=== PATIENT | female | born 1990 | race African-American/Black ===

== ENCOUNTER 2019-01-23 16:53 | Emergency (ER) | payer SELFPAY ==
--- NOTE | 2019-01-23 17:26 | ER ---
Nurse's Notes [facility] Name: Demar Ochoa Age: 28 yrs Sex: Female : 1990 Arrival Date: 01/23/2019 Time: 16:53 Bed 12 Private MD: Diagnosis: Conjunctivitis Presentation: 01/23 17:06 Presenting complaint: Patient states: "I got pink eye from my son." Started Wednesday to sv the left eye. Transition of care: patient was not received from another setting of care. Onset of symptoms was January 20, 2019. Risk Assessment: Do you want to hurt yourself or someone else? Patient reports no desire to harm self or others. Initial Sepsis Screen: Does the patient meet any 2 criteria? No. Patient's initial sepsis screen is negative. Does the patient have a suspected source of infection? No. Patient's initial sepsis screen is negative. Care prior to arrival: None. 17:06 Method Of Arrival: Ambulatory sv 17:06 Acuity: TRANG 5 sv Triage Assessment: 17:06 General: Appears in no apparent distress. comfortable, well developed, Behavior is sv calm, cooperative, appropriate for age. Pain: Denies pain. EENT: Eyes are tearing on left eye Sclera/Cornea are reddened in left eye. Neuro: Level of Consciousness is awake, alert, obeys commands, Oriented to person, place, time, situation. Respiratory: Respiratory effort is even, unlabored, Respiratory pattern is regular, symmetrical. Derm: Skin is pink, warm \\T\\ dry. Historical: - Allergies: 17:07 No Known Allergies; sv - PMHx: 17:07 None; sv - PSHx: 17:07 None; sv - Immunization history:: Adult Immunizations up to date. - Social history:: Smoking status: Patient/guardian denies using tobacco. - Ebola Screening: : No symptoms or risks identified at this time. Screenin:06 Abuse screen: Denies threats or abuse. Denies injuries from another. Nutritional sv screening: No deficits noted. Tuberculosis screening: No symptoms or risk factors identified. Fall Risk None identified. Assessment: 17:18 Reassessment: Patient appears in no apparent distress at this time. No changes from sv previously documented assessment. See triage assessment. Vital Signs: 17:07 BP 121 / 83; Pulse 79; Resp 16; Temp 98.7(O); Pulse Ox 97% ; Weight 58.97 kg; Height 5 sv ft. 4 in. (162.56 cm); 17:07 Body Mass Index 22.31 (58.97 kg, 162.56 cm) sv ED Course: 16:53 Patient arrived in ED. as 17:06 Patient has correct armband on for positive identification. Call light in reach. Door sv closed. 17:07 Triage completed. sv 17:08 Cesar Benavides PA is PHCP. jr8 17:08 Branden Ambrocio MD is Attending Physician. jr8 17:08 Arm band placed on. sv 17:35 Jerrell Lord, TONIO is Primary Nurse. rv 17:35 No provider procedures requiring assistance completed. Patient did not have IV access rv during this emergency room visit. Administered Medications: No medications were administered Outcome: 17:25 Discharge ordered by . jr8 17:35 Discharged to home ambulatory. rv 17:35 Condition: good 17:35 Discharge instructions given to patient, Instructed on discharge instructions, follow up and referral plans. medication usage, Demonstrated understanding of instructions, follow-up care, medications, Prescriptions given X 1. 17:36 Patient left the ED. rv Signatures: Roberta Linares, RN RN Cece Elizabeth as Cesar Benavides PA PA rust Jerrell Lord, TONIO RN rv
--- NOTE | 2019-01-23 17:27 | EDPHYS ---
Physician Documentation [facility] Name: Demar Ochoa Age: 28 yrs Sex: Female : 1990 Arrival Date: 01/23/2019 Time: 16:53 Bed 12 Private MD: ED Physician Branden Ambrocio HPI: 01/23 17:21 This 28 yrs old Black Female presents to ER via Ambulatory with complaints of Eye jr8 Problem. 17:21 The patient is experiencing matting or discharge, pain, redness, tearing. Onset: The jr8 symptoms/episode began/occurred acutely, 1 day(s) ago. Duration: the symptoms are continuous. Aggravated by light, rubbing, Alleviated by nothing. Associated signs and symptoms: Pertinent positives: None. Patient does not utilize any form of vision correction. Severity of symptoms: At their worst the symptoms were mild in the emergency department the symptoms are unchanged. The patient has not experienced similar symptoms in the past. The patient has not recently seen a physician. Patient stated that her two children were just treated for conjunctivitis. Started to have symptoms yesterday. Worse today . Historical: - Allergies: 17:07 No Known Allergies; sv - PMHx: 17:07 None; sv - PSHx: 17:07 None; sv - Immunization history:: Adult Immunizations up to date. - Social history:: Smoking status: Patient/guardian denies using tobacco. - Ebola Screening: : No symptoms or risks identified at this time. ROS: 17:21 ENT: Negative for injury, pain, and discharge, Neck: Negative for injury, pain, and jr8 swelling, Cardiovascular: Negative for chest pain, palpitations, and edema, Respiratory: Negative for shortness of breath, cough, wheezing, and pleuritic chest pain, Abdomen/GI: Negative for abdominal pain, nausea, vomiting, diarrhea, and constipation, Back: Negative for injury and pain, MS/Extremity: Negative for injury and deformity, Skin: Negative for injury, rash, and discoloration, Neuro: Negative for headache, weakness, numbness, tingling, and seizure. 17:21 Eyes: Positive for itching, matting, pain, redness, tearing, of the left eye. Exam: 17:21 ENT: Nares patent. No nasal discharge, no septal abnormalities noted. Tympanic jr8 membranes are normal and external auditory canals are clear. Oropharynx with no redness, swelling, or masses, exudates, or evidence of obstruction, uvula midline. Mucous membranes moist. Neck: Trachea midline, no thyromegaly or masses palpated, and no cervical lymphadenopathy. Supple, full range of motion without nuchal rigidity, or vertebral point tenderness. No Meningismus. Respiratory: Lungs have equal breath sounds bilaterally, clear to auscultation and percussion. No rales, rhonchi or wheezes noted. No increased work of breathing, no retractions or nasal flaring. Abdomen/GI: Soft, non-tender, with normal bowel sounds. No distension or tympany. No guarding or rebound. No evidence of tenderness throughout. Skin: Warm, dry with normal turgor. Normal color with no rashes, no lesions, and no evidence of cellulitis. MS/ Extremity: Pulses equal, no cyanosis. Neurovascular intact. Full, normal range of motion. Neuro: Awake and alert, GCS 15, oriented to person, place, time, and situation. Cranial nerves II-XII grossly intact. Motor strength 5/5 in all extremities. Sensory grossly intact. Cerebellar exam normal. Normal gait. 17:21 Eyes: Periorbital structures: appear normal, Pupils: equal, round, and reactive to light and accomodation, Extraocular movements: intact throughout, Conjunctiva: injected, in the left eye, tearing noted, in left eye, Corneas: are normal, Sclera: no appreciated abnormality, Anterior chamber: normal, Lids and lashes: appear normal, bilaterally. Vital Signs: 17:07 BP 121 / 83; Pulse 79; Resp 16; Temp 98.7(O); Pulse Ox 97% ; Weight 58.97 kg; Height 5 sv ft. 4 in. (162.56 cm); 17:07 Body Mass Index 22.31 (58.97 kg, 162.56 cm) sv MDM: 17:18 Patient medically screened. [facility] 17:21 Data reviewed: vital signs, nurses notes, and as a result, I will discharge patient. jr8 Data interpreted: Pulse oximetry: on room air is 97 %. Interpretation: normal. Counseling: I had a detailed discussion with the patient and/or guardian regarding: the historical points, exam findings, and any diagnostic results supporting the discharge/admit diagnosis, the need for outpatient follow up, an opthalmologist, to return to the emergency department if symptoms worsen or persist or if there are any questions or concerns that arise at home. Administered Medications: No medications were administered Disposition: 01/24 07:30 Co-signature as Attending Physician, Branden Ambrocio MD I agree with the assessment and [facility] plan of care. Disposition: 01/23/19 17:25 Discharged to Home. Impression: Conjunctivitis. - Condition is Stable. - Discharge Instructions: Bacterial Conjunctivitis, Viral Conjunctivitis. - Prescriptions for Gentamicin 0.3 % Ophthalmic Drops - instill 2 drops by OPHTHALMIC route every 4 hours for 7 days; 1 bottle. - Medication Reconciliation Form, Thank You Letter, Antibiotic Education, Prescription Opioid Use, Work release form form. - Follow up: Private Physician; When: 5 - 6 days; Reason: Recheck today's complaints, Continuance of care, Re-evaluation by your physician. - Problem is new. - Symptoms have improved. Signatures: Roberta Linares RN RN sv Anderson, Corey, MD MD cha Roszak, Josh, PA PA jr8 Jerrell Lord, RN RN rv Corrections: (The following items were deleted from the chart) 01/23 17:36 17:25 01/23/2019 17:25 Discharged to Home. Impression: Conjunctivitis. Condition is rv Stable. Forms are Medication Reconciliation Form, Thank You Letter, Antibiotic Education, Prescription Opioid Use. Follow up: Private Physician; When: 5 - 6 days; Reason: Recheck today's complaints, Continuance of care, Re-evaluation by your physician. Problem is new. Symptoms have improved. jr8
== END 2019-01-23 17:36 | disposition home or self-care (01) ==
LOC: ER 16:53
DX: H10.9 Unspecified conjunctivitis (principal)
CPT/HCPCS: 99282

== ENCOUNTER 2022-01-04 01:14 | Inpatient (IN) | payer OTHER ==
[~2022-01-04 01:14] MED LIST: BUTORPHANOL 1 MG/ML INJ IV PRN; METHYLERGONOVINE 0.2MG/ML AMP IM PRN; PROMETHAZINE INJ 25 MG/ML AMP IM PRN; Ringers Lactate 1,000 ML IV PRN
--- OUTSIDE RECORDS SUMMARY | 2022-01-04 01:28 | XMS REPORT | Continuity of Care Document ---
:1990 Author Organization [facility] t Address [address] [place] [address] [address] [place] [address] Care Team Providers Name Role Phone ANAND DYKESOLGA Lora Primary Care Physician Unavailable NOA CRAWFORD Attending Clinician Unavailable NOA CRAWFORD Attending Clinician Unavailable Al Freitas NP Attending Clinician ANNE MARIE ALMANZA Attending Clinician Unavailable AL FREITAS Attending Clinician Unavailable G_Pappas Attending Clinician Unavailable G_Pappas Admitting Clinician Unavailable Payers Payer Name Policy Type Policy Number Effective Date Expiration Date S bobby [place] [employer] [id number] 2016 HEALTH 00:00:00 [place] [id number] [place]MEDICAID[place] Problems Condition Condition Condition Status Onset Resolution Last Treating Co mments Source Name Details Category Date Date Treatment Clinician Date Nausea and Nausea and Disease Active U nivers vomiting vomiting 3-04 ity of during during 00:00: [place] 00 Medi [facility] prior to prior to Branch 22 weeks 22 weeks gestation gestation Screening Screening Disease Active Uni vers examinatio examinatio 8-12 it y of n for STD n for STD 00:00: [place] (sexually (sexually 00 Medi abril transmitte transmitte Br anch d disease) d disease) Vaginal Vaginal Disease Active Univers discharge discharge 8-12 ity of 00:00: [place] 00 Medical Branch BMI BMI Disease Active Univers 25.0-25.9, 25.0-25.9, 8-12 it y of adult adult 00:00: [place] 00 Medical Branch Suprvsn of Suprvsn of Disease Active U nivers high risk high risk 8-12 ity of preg due preg due 00:00: [place] to social to social 00 Medi abril problems, problems, Bran ch second tri second tri Multiparit Multiparit Disease Active U nivers y y 8-12 ity of 00:00: [place] 00 Medical Branch Allergies, Adverse Reactions, Alerts Allergy Allergy Status Severity Reaction(s) Onset Inactive Treating Comm ents Source Name Type Date Date Clinician NO KNOWN Drug Active Univers ALLERGIE Class ity of [facility] Social History Social Habit Start Date Stop Date Quantity Comments Source ASSERTION 2021-04-18 [facility] 00:00:00 [facility] Alcohol intake 2021-07-25 2021-07-25 0 /d [facility] 00:00:00 00:00:00 [facility] Branch Sex Ass[birth year] At [birth year] [facility] 00:00:00 00:00:00 [facility] Branch Smoking Status Start Date Stop Date Source Never smoker [facility] Medications Ordered Filled Start Stop Current Ordering Indication Dosage Frequency Signature Comments Components Source Medication Medication Date Date Medication? Clinician (SIG) Name Name pyridoxine, Yes [id number] 25mg Take 1 Univers VITAMIN 3-16 tablet by ity of B-6, 25 mg 00:00: [place] tablet 00 (three) Medical times Branch daily. doxylamine Yes [id number] 25mg Take 1 U nivers 25 mg 3-16 tablet by ity of tablet 00:00: mouth at [place] 00 bedtime. Medical Branch metoclopram Yes [id number] 10mg Take 1 Univers anthony HCl 10 3-16 tablet by ity of mg tablet 00:00: mouth [place] 00 every 6 Medical (six) Branch hours as needed for Nausea and Vomiting (N/V). PNV 67-iron Yes [id number] 1{tbl} Take 1 Univers ps-folate 3-16 tablet by ity o f no.1-dha 00:00: mouth [place] (VITAFOL 00 daily. Medical ULTRA) 29 Branch mg iron- 1 mg-200 mg Cap 2021- No Take by [facility] [place] [facility] rs vits62/FA/o 3-04 03-04 mouth. ity o f m3/dha/epa 12:35: 00:00 [place] ( 05 :00 Medical GUMMY ORAL) Branch metoclopram 2021- No [id number] 10mg Take 1 Univers anthony HCl 10 06-17 tablet by ity of mg tablet 00:00: 00:00 mouth [place] 00 :00 every 6 Medical (six) Branch hours as needed for Nausea and Vomiting (N/V). PNV 67-iron 2021- No 1{tbl} Take 1 U nivers ps-folate 06-13 tablet by ity of no.1-dha 00:00: 00:00 mouth [place] (VITAFOL 00 :00 daily. Medical ULTRA) 29 Branch mg iron- 1 mg-200 mg Cap pyridoxine, 2021- No [id number] 25mg Take 1 Univers VITAMIN 06-05 tablet by ity of B-6, 25 mg 00:00: 00:00 mouth 3 [place] as tablet 00 :00 (three) Medical times Branch daily. doxylamine 2021- No [id number] 25mg Take 1 Univers 25 mg 06-05 tablet by ity of tablet 00:00: 00:00 mouth at [place] 00 :00 bedtime. [facility] Vital Signs Vital Name Observation Time Observation Value Comments Source Systolic blood 2021-07-25 17:36:00 114 mm[Hg] [facility] Diastolic blood 2021-07-25 17:36:00 76 [facility]Hg[facility] rate 2021-07-25 17:36:00 73 /min [facility] Body temperature 2021-07-25 17:36:00 36.78 [facility] Respiratory rate 2021-07-25 17:36:00 18 /min [facility] Body height 2021-07-25 17:36:00 162.6 cm [facility] Body weight 2021-07-25 17:36:00 62.732 kg [facility] BMI 2021-07-25 17:36:00 23.74 kg/m2 [facility] Procedures Procedure Date / Time Performed Performing Clinician Sourc e GALV ONLY - VAGINAL 2021-07-25 17:58:00 Mariela Berkowitz [facility] [place] PATHOGENS BY NUCLEIC Medical [facility] ACID TESTING POCT URINALYSIS W/O 2021-07-25 17:39:00 Al Freitas [facility] SPECIFIC GRAVITY [facility] Encounters Start End Encounter Admission Attending Care Care Encounter Source Date/Time Date/Time Type Type Clinicians Facility Department ID 2021-10-21 2021-10-21 Outpatient R [facility] [id number] Univers 08:30:00 08:30:00 [id number] ity [facility] 2021-10-21 2021-10-21 Outpatient P SERGE CRAWFORDEETA [facility] [id number] Univers 08:30:00 08:30:00 [facility]-08-22 2021-08-22 [facility] [id number] Univers 00:00:00 00:00:00 Management Al JACOB [id number] ity of WOMEN'S [id number] [facility] [id number] [address] 2021-08-21 2021-08-21 Outpatient R ANNE MARIE ALMANZA [facility] [id number] Univers 08:00:00 08:00:00 ity of [facility] 2021-07-25 2021-07-[address] [facility] [id number] Univers 11:00:00 11:56:46 Al JACOB [id number] i ty of Visit WOMEN'S [id number] [facility] [id number] [address] 2021-07-25 2021-07-25 Outpatient R AL FREITAS [facility] B [id number] Univers 11:00:00 11:56:46 AL FREITAS [facility] 2020-04-10 2020-04-10 Outpatient G_Pappas [facility] 2019 [place] 02:42:00 02:42:00 [id number] Results Test Description Test Time Test Comments Results Result Comments Source POCT URINALYSIS W/O SPECIFIC GRAVITY 2021-07-25 17:39:00 Test Item Value Reference Range Interpretation Comme nts POCT PH U (test code = 3254) n/a 5-8 POCT U LEUK EST (test code = 3263) n/a Negative - Negative POCT U NIT (test code = 3262) n/a Negative - Negative POCT U PROT (test code = 3259) trace Negative - Negative POCT U GLU (test code = 3256) Negative Negative - Negative POCT U KETONE (test code = 3258) n/a Negative - Negative POCT U BLD (test code = 3257) n/a Negative - Negative [facility]
[2022-01-04] MEDS ORDERED: Ringers Lactate 1,000 ML IV SCH (02:00)
[2022-01-04 02:15] LABS: Absolute Lymphocytes (CBC) 2.7 K/uL (0.7-4.9); Hematocrit 35.9 % (36.0-45.0); Lymphocytes % 27.6 % (15.3-44.8); MCV 89.1 fL (80-100); MPV 8.3 fL (7.6-11.3); RBC Red Blood Cell Count 4.02 M/uL (3.86-4.86)
[2022-01-04 02:29] VITALS: BMI 29.8
[2022-01-04] MEDS ORDERED: FENTANYL CITR 100 MCG/2 ML IV ONE (02:34)
[2022-01-04] MEDS ORDERED: 0.2% ROPIVACAINE (200 MG/100 ML) BAG EP ONE (02:34)
[2022-01-04] MEDS ORDERED: ROPIVACAINE HCL 0.2% 20ML AMP EP ONE (02:35)
[2022-01-04] MEDS ORDERED: ROPIVACAINE HCL 0 ML EP ONE (02:52)
[2022-01-04] MEDS ORDERED: ROPIVACAINE HCL 0 ML ONE (02:52)
[2022-01-04] MEDS ORDERED: FENTANYL CITR 100 MCG/2 ML ONE (02:55)
[2022-01-04] MEDS ORDERED: OXYTOCIN/LR 20 UNIT/1,000 ML BAG IV ONE (03:17)
[2022-01-04] MEDS ORDERED: ERYTHROMYCIN 1 APPL/1 GM TUBE ONE (03:18)
[2022-01-04] MEDS ORDERED: PHYTONADIONE 1 MG/0.5 ML SYR ONE (03:18)
[2022-01-04] MEDS ORDERED: HEPATITIS B VACCINE (PEDI) 10 MCG/0.5 ML SYR IMVAC ONE (03:19)
[2022-01-04] MEDS ORDERED: CARBOPROST TROME 250 MCG/ML IM ONE (03:20)
[2022-01-04] MEDS ORDERED: LIDOCAINE 1% MPF 30 ML VIAL ONE (03:21)
[2022-01-04] MEDS ORDERED: BISACODYL 10 MG RECTAL SUPP PR PRN (03:57)
[2022-01-04] MEDS ORDERED: Oxycodone HCl/Acetaminophen 1 TAB TAB PO PRN ×2 (03:57)
[2022-01-04] MEDS ORDERED: DOCUSATE NA/SENNA CONC 1 TAB PO PRN (03:57)
[2022-01-04] MEDS ORDERED: IBUPROFEN 200 MG TAB PO PRN (03:57)
[2022-01-04] MEDS ORDERED: ACETAMINOPHEN 500 MG TAB PO PRN (03:57)
[2022-01-04] MEDS ORDERED: DIPHENHYDRAMINE 25 MG TAB/CAP PO PRN (03:57)
[2022-01-04] MEDS ORDERED: OXYTOCIN/LR 20 UNIT/1,000 ML BAG IV SCH (04:00)
[2022-01-04] MEDS ORDERED: METHYLERGONOVINE 0.2 MG TAB PO PRN (04:05)
[2022-01-04] MEDS ORDERED: IBUPROFEN 600 MG TAB ONE (04:17)
[2022-01-04] MEDS ORDERED: miSOPROStoL 100 MCG TAB PO ONE (04:47)
--- NOTE | 2022-01-04 04:48 | PREOPHP ---
Date of Admission: 01/04/2022 History Of Present Illness: 31-year-old, 3, para 2, 39 weeks 2 days, scheduled for induction tomorrow, came in in active rapidly advancing labor, 3 cm on admission. With rupture of membranes, clear fluid. At 4 to 5 cm, requested epidural, but then patient within the next few minutes went to complete. Family History: Great Aunt had cancer. Otherwise, no significant family history. Allergies: NO ALLERGIES. Medications: No medicines prior to admission other than vitamins and iron. Social History: The patient does not smoke. Physical Examination: HEENT: Clear. Pupils equal, round, reactive to light and accommodation. Conjunctivae well perfused . No oral, lingual, or buccal lesions. Chest/Lungs: Clear. Heart: Without murmurs, thrills, heaves, or rubs. Breasts: Without masses on previous visits. Abdomen: Term size. Extremities: Clear without edema, cyanosis, or clubbing. Pelvic: As stated. Assessment/plan: Admit and stabilize for delivery. SHANKAR/CAREN Voice ID: [id number]
--- NOTE | 2022-01-04 04:48 | DN ---
Surgeon: Corbin Giron MD 31-year-old female, 3, para 2, at 39 weeks 2 days, came in in active rapidly advancing labor, 3 cm with rupture of membranes on admission, within a short time was 4 to 5, and then shortly therea fter was complete. Epidural anesthesia had been requested and Dr. Beach came to the hospital, but she was already complete and at that point second stage of about 15 minutes, spontaneous vaginal deliver y of a 5-pound 3-ounce male , Apgars 9 and 9. No episiotomy. No lacerations worthy of suturin g. Placenta retained for 25 minutes and then was expelled. Uterus mildly hypotonic, 0.2 mg of Methe rgine IM as well as massage. Estimated blood loss 400 cc. The patient tolerated all procedures well . She had received Stadol 1 mg IV and Phenergan 25 mg IM during the labor. Final Diagnoses: Term intrauterine at 39 weeks 2 days, spontaneous labor, vaginal delivery , and mild uterine hypotonus. SHANKAR/CAREN Voice ID: [id number] Report ID: [id number]
[2022-01-04] MEDS ORDERED: MEPERIDINE HCL 25 MG/ML SYR IV ONE (04:55)
[2022-01-04] MEDS ORDERED: miSOPROStoL 100 MCG TAB ONE ×2 (04:56→05:20)
[2022-01-04] MEDS ORDERED: MEPERIDINE HCL 50 MG/ML ONE (05:07)
[2022-01-04] MEDS ORDERED: OXYTOCIN 10 UNIT/ML ML ONE (05:12)
[2022-01-04] MEDS ORDERED: CEFAZOLIN 2 GM IN 0.9% NACL 2 GM/100 ML BAG ONE (05:17)
[2022-01-04] MEDS ORDERED: CEFAZOLIN 2 GM in NA CHLORIDE 0.9% 100 ML IVPB ONE (06:32)
--- NOTE | 2022-01-04 08:08 | PN ---
The patient is now ambulating, voiding. Lochia is normal at this point. She has no complaints or pr oblems. We went over full dismissal instructions. Of course, she will not be dismissed until tomorr ow. We will keep the IV until lunchtime. Continue the oral Cytotec for 4 doses after the initial do se. Full discussion with the patient about uterine hypotonus. She knows that with each th e possibility is greater. Tdap immunization has been discussed. Doing well at this point. SHANKAR/CAREN Voice ID: [id number] Report ID: [id number]
[2022-01-04] MEDS: miSOPROStoL 100 MCG TAB PO SCH ×4 (09:02→20:55)
[2022-01-04] MEDS: IBUPROFEN 600 MG TAB PO PRN ×2 (12:15→20:55)
[2022-01-05 03:44] LABS: RPR (Rapid Plasma Reagin) NON-REACT (NON-REACT)
[2022-01-05 08:51] VITALS: BP 117/69; TEMP 97.5
[2022-01-05] MEDS ORDERED: TDAP (DIPHTH,PERTUSS(ACELL),TET VAC) 0.5 ML VIAL IMVAC ONE (09:10)
--- NOTE | 2022-01-05 09:21 | DS ---
Hospital Course: Demar Ochoa is a 31-year-old, 3, para 2, scheduled for induction today, c kayla in active labor. Subsequently, delivered a 5-pound 3-ounce male , Apgars 9 and 9. No epis iotomy. No lacerations. Worthy of Schultze delivery of the placenta. Placenta retained for about 2 0 minutes and then spontaneous vaginal delivery. Initially bleeding was normal, but then began to increase. I came back to the hospital, gave the patient 20 mg of Demerol IV, prepped and dr monson, and intrauterine exam demonstrated no further tissue but slight . First-degree lacer ation was encountered at that time and repaired with 2-0 chromic 4 stitches under local infiltration. The patient was given IV drip Pitocin, 0.2 mg of Methergine IM. Cytotec 200 mcg initially and then every 4 hours x4 more doses. Bleeding is completely normal at this point. She is ambulating, voidi ng. Vital signs are stable. The patient is Rh positive, immune to Rubella, negative strep. Will be dismissed later today to report back to my office in 4-6 weeks for followup to report any temperatur e elevation of 100 degrees or greater, severe pain, heavy bleeding, or any other type of abnormalitie s. The patient was also given 2 g of Ancef post intrauterine exam for prophylaxis. She requests no analgesics on dismissal. Final Diagnoses: Term intrauterine , spontaneous labor, vaginal delivery, uterine hypotonus , intrauterine exam, antibiotic prophylaxis, now dismissed. SHANKAR/CAREN Voice ID: [id number] Report ID: [id number]
--- NOTE | 2022-01-05 10:18 | DS ---
second, third, and fourth . CARSON/RUSSELLL Voice ID: [id number] Report ID: [id number]
--- NOTE | 2022-01-05 11:06 | PN ---
Post delivery, the patient still had lochia, it was more than normal according to the attending nurse . I was called, indeed there was more than normal lochia. The patient was given 25 mg of Demerol an d prepping again was then performed. Intrauterine exam showed clots, but no retained placenta. She was given 200 mcg of Cytotec p.o. We will give her 2 g of Ancef for prophylaxis. With exploration, there was small little first-degree tear that she had at delivery required no stitches, then required 4 stitches of 2-0 chromic under local infiltration. Lochia is normal at this point. We will contin ue Cytotec 200 mcg q. 4 hours x4 doses and continue IV with IV drip Pitocin until lunchtime. Stable at this point. Diagnosis: Uterine hypotonus. SHANKAR/CAREN Voice ID: [id number] Report ID: [id number]
[2022-01-07 03:15] LABS: HBsAG Nonreactive (Nonreactive)
== END 2022-01-05 11:00 | disposition home or self-care (01) | DRG 807 ==
LOC: 2ND-WC 01:14
PROVIDERS: ADMIT Specialist; ATTEND Specialist
PROC: 10E0XZZ Delivery of Products of Conception, External Approach (ICD-10-PCS; principal; 2022-01-04)
PROC: 0HQ9XZZ Repair Perineum Skin, External Approach (ICD-10-PCS; 2022-01-04)
PROC: 10J17ZZ Inspection of Products of Conception, Retained, Via Natural or Artificial Opening (ICD-10-PCS; 2022-01-04)
DX: O72.2 Delayed and secondary postpartum hemorrhage (principal); Z37.0 Single live birth; O70.0 First degree perineal laceration during delivery; O62.2 Other uterine inertia; Z3A.39 39 weeks gestation of pregnancy; Z23 Encounter for immunization
CPT/HCPCS: 36415; 85025; 86592; 86901; 87340; 90744; J0595; J0690; J2175; J2210; J2550; J2590; J2795; J3010; J3430; J7120